=== PATIENT | male | born 1985 | race American Indian/Alaskan Native ===

== ENCOUNTER 2017-10-25 14:39 | Emergency (ER) | payer OTHER ==
[2017-10-25] MEDS ORDERED: TYLENOL ONE (14:45)
[2017-10-25] MEDS ORDERED: TYLENOL PO ONE (14:47)
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
[2017-10-25] MEDS ORDERED: MOTRIN PO ONE (16:29)
--- NOTE | 2017-10-25 17:12 | XRay Report ---
FINAL REPORT EXAM: XR SPINE LUMBOSACRAL 2-3V HISTORY: lower back pain TECHNIQUE: AP, lateral and lumbosacral spot views of the lumbar spine. PRIORS: None. FINDINGS: There are five lumbar type vertebral bodies. Normal alignment. No compression fracture. The disc spaces are maintained. The paravertebral soft tissues are normal. IMPRESSION: Normal lumbar spine.
[2017-10-25 18:00] VITALS: BP 118/72
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
== END 2017-10-25 17:59 | disposition home or self-care (01) ==
LOC: ED 14:39
DX: M79.1 Myalgia (principal); F17.200 Nicotine dependence, unspecified, uncomplicated; V49.19XA Passenger injured in collision with other motor vehicles in nontraffic accident, initial encounter; Y93.89 Activity, other specified; Y99.8 Other external cause status; Y92.488 Other paved roadways as the place of occurrence of the external cause
CPT/HCPCS: 70450; 72100